=== PATIENT | male | born 1995 | race Caucasian/White ===

== ENCOUNTER 2017-10-27 02:36 | Emergency (ER) | payer OTHER, SELFPAY ==
[2017-10-27 02:37] VITALS: BP 140/76; PULSE 109; RESP 24; TEMP 37.1; O2SAT 97; BMI 27.8
[2017-10-27 03:34] LABS: Absolute Lymphocyte Count 2.07 X10^3/ul (0.83-4.51); Absolute Neutrophil Count 5.8 X10^3/uL (2.0-7.7); Basophil# 0.01 X10^3/uL; Basophil% 0.1 % (0-1); Eosinophil# 0.19 X10^3/uL; Eosinophils% 2.2 % (0-5); Hematocrit 40.8 % (40-54); Lymphocyte # 2.07 X10^3/ul (4.0); Lymphocyte % 23.9 % (19-41); Mean Corp Hgb Conc 34.3 g/gl (32-36); Mean Corpuscular Hgb 29.8 pg (27.0-32.0); Mean Corpuscular Volume 86.8 fL (80-94); Monocyte# 0.56 X10^3/uL; Monocyte% 6.5 % (0-10); Neutrophil % 67.1 % (47-70); POSITIVE COUNT NO; POSITIVE DIFFERENTIAL NO; POSITIVE MORPHOLOGY NO; Platelet Count 267 K/mm3 (150-450); RBC Distribution Width CV 12.9 % (11.6-14.6); RBC Distribution Width SD 40.5 fl (35.1-43.9); White Blood Count 8.7 K/mm3 (4.4-11.0)
[2017-10-27 03:42] LABS: Anion Gap 12 (5-15); BUN 13 mg/dL (7-18); BUN/Creat Ratio 12.3 RATIO (10-20); Calcium,Total 8.2 mg/dL (8.5-10.1); Chloride 110 mmol/L (98-107); Creatinine, Serum 1.06 mg/dL (0.70-1.30); EST Glomerular Filtration Rate 93 mL/min (>60); Est Glom Filt Rate - Afr Amer 112 mL/min (>60); Estimated Creatinine Clearance 127.09 ml/min; Glucose 90 mg/dL (74-106); Potassium 3.9 mmol/L (3.5-5.1); Sodium Level 145 mmol/L (136-145)
[2017-10-27 03:44] LABS: Amphetamine Urine VISTA POSITIVE (<1000 ng/mL); Barbiturate Urine VISTA NEGATIVE (< 200 ng/mL); Benzodiazepine Urine VISTA NEGATIVE (< 200 ng/mL); Cocaine Urine VISTA NEGATIVE (< 300 ng/mL); Ecstacy Urine VISTA NEGATIVE (< 500 ng/mL); Methadone Urine VISTA NEGATIVE (< 300 ng/mL); PCP Urine VISTA NEGATIVE (< 25 ng/mL); THC Urine VISTA POSITIVE (< 50 ng/mL); Vista UDS pH Range 5
--- NOTE | 2017-10-27 03:57 | ED.VISSUMM ---
- ER Visit Summary Date of Service: 10/27/17 Chief Complaint: [Request for detox] History of Present Illness: The patient is a 22 M [presents to the emergency department with request for detoxing from alcohol, opiates, and amphetamines. Patient states that he is coming [place] [employer] [place] he used amphet[place] and has been drinking alcohol. Patient states that his family is convinced them to seek help for detox. Patient denies feeling suicidal or homicidal. Patient has not gone through detox in the past. When asked how often he uses patient states that he uses as often as he can and whenever he can get his hands on.] Physical Examination: [HEENT-PERRLA, EOMI. Cranial nerves II through XII grossly intact. TMs clear. Mucous membranes moist. No adenopathy. Cardiovascular-regular rate and rhythm without murmur or ectopy Lungs-clear to auscultation, chest wall stable without crepitus or subcu emphysema Abdomen-normoactive bowel sounds, soft, nontender, no rebound or rigidity, no peritoneal signs. Neuro afpl-kvegsm-znih and heel che testing within normal limits, negative Romberg, negative pronator drift. Patient has no tremor on exam. No goosebumps noted no lacrimation noted no piloerection noted Extremities-intact ?4, normal range of motion, normal pulses, atraumatic] Test Results: [CBC with differential was normal. Chemistries unremarkable. Tox screen was positive for marijuana and methamphetamines. Alcohol was 116] Emergency Department Course and Treatment: [Patient was seen by crisis and they recommended possible admission voluntarily at [facility] however patient does not want to do that at this time he was hoping to stay here at [place] with [facility] however he does not meet criteria for medical stabilization admission therefore he will be discharged home with instructions to call [facility] tomorrow. Patient's [employer] clinical [place] for withdrawal assessment score was 12 and his clinical [place] narcotic assessment scale for withdrawal symptoms was a 6.] Treatment Plan: [Patient will follow up with [facility] in the morning] Disposition: [Discharged home in stable condition] Impression: [Illicit drug use Alcohol intoxication] This note was generated with [employer] software. It may contain incorrect words, spelling, and punctuation that were not noted in review of the chart prior to signing ED Disposition - Plan for ED Patient: Chief Complaint: Substance Abuse Referrals: Jay Byrnes MD [Primary Care Provider] -
--- NOTE | 2017-10-27 04:00 | ED.DCSUM_ITS ---
- ER Visit Summary Date of Service: 10/27/17 Chief Complaint: [Request for detox] History of Present Illness: The patient is a 22 M [presents to the emergency department with request for detoxing from alcohol, opiates, and amphetamines. Patient states that he is coming [place] [employer] [place] he used amphetamines and has been drinking alcohol. Patient states that his family is convinced them to seek help for detox. Patient denies feeling suicidal or homicidal. Patient has not gone through detox in the past. When asked how often he uses patient states that he uses as often as he can and whenever he can get his hands on.] Physical Examination: [HEENT-PERRLA, EOMI. Cranial nerves II through XII grossly intact. TMs clear. Mucous membranes moist. No adenopathy. Cardiovascular-regular rate and rhythm without murmur or ectopy Lungs-clear to auscultation, chest wall stable without crepitus or subcu emphysema Abdomen-normoactive bowel sounds, soft, nontender, no rebound or rigidity, no peritoneal signs. Neuro rvps-brgvok-bwqa and heel ceh testing within normal limits, negative Romberg, negative pronator drift. Patient has no tremor on exam. No goosebumps noted no lacrimation noted no piloerection noted Extremities-intact ?4, normal range of motion, normal pulses, atraumatic] Test Results: [CBC with differential was normal. Chemistries unremarkable. Tox screen was positive for marijuana and methamphetamines. Alcohol was 116] Emergency Department Course and Treatment: [Patient was seen by crisis and they recommended possible admission voluntarily at [facility] however patient does not want to do that at this time he was hoping to stay here at [place] with [facility] however he does not meet criteria for medical stabilization admission therefore he will be discharged home with instructions to call [facility] tomorrow. Patient's [employer] clinical [place] for withdrawal assessment score was 12 and his clinical [place] narcotic assessment scale for withdrawal symptoms was a 6.] Treatment Plan: [Patient will follow up with [facility] in the morning] Disposition: [Discharged home in stable condition] Impression: [Illicit drug use Alcohol intoxication] This note was generated with [employer] software. It may contain incorrect words, spelling, and punctuation that were not noted in review of the chart prior to signing ED Disposition - Plan for ED Patient: Chief Complaint: Substance Abuse Referrals: Jay Byrnes MD [Primary Care Provider] -
--- NOTE | 2017-10-27 04:00 | ED.DEP ---
ED Disposition - Plan for ED Patient: Chief Complaint: Substance Abuse Instructions: ED Drug Abuse General, ED Alcohol Abuse Referrals: Jay Byrnes MD [Primary Care Provider] - Additional Instructions: Follow up with [facility] in the morning.
[2017-10-27 04:05] VITALS: RESP 16
== END 2017-10-27 04:15 | disposition home or self-care (01) ==
PROVIDERS: Emergency Provider Emergency Medicine; Family Provider Pediatrics; PCP Pediatrics
DX: F10.129 Alcohol abuse with intoxication, unspecified (principal); Y90.9 Presence of alcohol in blood, level not specified; F15.90 Other stimulant use, unspecified, uncomplicated; F11.90 Opioid use, unspecified, uncomplicated; F12.90 Cannabis use, unspecified, uncomplicated; Z72.0 Tobacco use
CPT/HCPCS: 36415; 80048; 80307; 80320; 85025; 99282; G0480